=== PATIENT | male | born 1955 | race Caucasian/White ===

== ENCOUNTER 2017-01-28 12:35 | Outpatient (CLI) | payer OTHER ==
[2017-01-28] MEDS ORDERED: Lidocaine 1% PF 5 ML VIAL ONE (13:30)
[2017-01-28] MEDS ORDERED: EPINEPHrine 1 MG/ML AMP ONE (13:30)
[2017-01-28] MEDS ORDERED: Iopamidol 300 61% 30 ML VIAL ONE (13:30)
[2017-01-28] MEDS ORDERED: Gadobenate Dimeglumine 529 MG/1 ML (20ML VIAL) ONE (13:30)
--- NOTE | 2017-01-28 15:37 | RAD ---
EXAM: RIGHT SHOULDER ARTHROGRAM: HISTORY: Acute pain. Degenerative tear to the glenoid labrum. COMPARISON: 07/15/15. EXPOSURE: 0.6 minutes. 44.7 mGy*\S\m2. FINDINGS: Three views of the right shoulder are performed for digital data analyst imaging. No evidence of fracture dislocat ion. Technically successful right shoulder arthrogram. A total of 12 cc of contrast admixture was admini stered. No immediate or post procedure complications. TECHNIQUE: Consent was obtained to perform a right shoulder arthrogram. The right shoulder was prepped and guerrero ped in sterile fashion. 1% Lidocaine, buffered with sodium bicarbonate, was used for local anesthes ia. Under fluoroscopic guidance, a 22-gauge spinal needle was advanced into the right shoulder join t space. A total of 12 cc of contrast admixture was administered. The patient tolerated the proced ure well. No immediate or post procedure complication. IMPRESSION: Technically successful right shoulder arthrogram. POS: [facility]
--- NOTE | 2017-01-28 16:07 | MRI ---
MRI ARTHROGRAM OF THE RIGHT SHOULDER: INDICATION: Right shoulder pain. COMPARISON: A prior MRI arthrogram of the right shoulder 07/15/15. FINDINGS: There is postsurgical change of a prior SLAP repair. There are suture anchors seen involving the heart perior glenoid. There is again seen a partial thickness moderate-grade articular surface tear invol ving the infraspinatus at the footprint. This involves 50% of the tendon thickness. There is mild tendinosis of the supraspinatus and infraspinatus. No full-thickness rotator cuff tear is evident. There is a recurrent tear involving the posterior superior glenoid labrum best seen on image 10 and 9 of the ABER series. This is also seen on images 11 and 12 of series 6. There is postsurgical ch trish of a prior acromioplasty and distal clavicle excision. Glenohumeral articular surface demonstr ates some mild chondrosis involving the posterior glenoid. The anterior inferior glenohumeral chayo l ligamentous complex is intact. No muscular atrophy is evident. The biceps tendon is located. Th ere is mild intraarticular biceps tendinosis. IMPRESSION: 1. Recurrent posterior superior glenoid labral tear. 2. Partial thickness articular surface tear of the infraspinatus at the footprint involving 50% of the tendon thickness. 3. Mild biceps tendinosis. 4. Interval postsurgical change of a prior superior labrum anterior to posterior repair. 5. Mild chondrosis involving the posterior superior glenoid articular surface. 6. Postsurgical change of prior distal clavicle excision and acromioplasty. POS: OFF
== END 2017-01-28 12:36 | disposition home or self-care (01) ==
LOC: RAD 12:35
PROVIDERS: ATTEND Family Medicine
DX: M25.511 Pain in right shoulder (principal); M24.111 Other articular cartilage disorders, right shoulder; S43.491A Other sprain of right shoulder joint, initial encounter; S43.401A Unspecified sprain of right shoulder joint, initial encounter; M75.91 Shoulder lesion, unspecified, right shoulder; Z98.890 Other specified postprocedural states
CPT/HCPCS: 23350; A9579; J0171; J2001; J7050

== ENCOUNTER 2017-04-20 09:24 | Outpatient (CLI) | payer OTHER ==
--- NOTE | 2017-04-20 13:29 | MRI ---
MRI LEFT THUMB WITHOUT CONTRAST: HISTORY: Crush injury. COMPARISON: None. FINDINGS: BONES: No fracture. There is mild varus angulation of the thumb metacarpophalangeal joint. LIGAMENTS: The accessory ligaments are intact. No definite injury of the collateral ligaments, alth ough limited due to the varus angulation of the thumb metacarpophalangeal joint. TENDONS: No significant tenosynovitis. IMPRESSION: 1. No displaced fracture or trabecular micro-impaction fracture. 2. Mild varus angulation of the thumb metacarpophalangeal joint with thickening of the ulnar collate ral ligament, which may be sequela of the varus angulation and ligament interposition onto itself. POS: [facility]
== END 2017-04-20 09:25 | disposition home or self-care (01) ==
LOC: SCSMRI 09:24
PROVIDERS: ATTEND Orthopaedic Surgery
DX: S63.642A Sprain of metacarpophalangeal joint of left thumb, initial encounter (principal); M24.242 Disorder of ligament, left hand

== ENCOUNTER 2017-05-28 05:50 | Day surgery (SDC) | payer OTHER ==
[2017-05-20 10:30] VITALS: BMI 23.0
[2017-05-28] MEDS ORDERED: Midazolam HCl 2 mg/2 ml Vial ONE (06:35)
[2017-05-28] MEDS ORDERED: Fentanyl 100 MCG/2 ML VIAL ONE (06:35)
[2017-05-28] MEDS ORDERED: Clindamycin/D5W 900 mg/50 ml Premix Bag ONE (06:42)
[2017-05-28] MEDS ORDERED: Lidocaine 1% (PF) 30 ML VIAL ONE (06:43)
--- NOTE | 2017-05-28 08:31 | OP ---
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 POSTOPERATIVE DIAGNOSIS: Proximal biceps tendon degeneration and tearing. PROCEDURE: Examination under anesthesia with diagnostic arthroscopy and use of arthroscopic right sh oulder biceps tenodesis. ANESTHESIA: General with interscalene block. SURGEON: Dr. Soto. BLOOD LOSS: Minimal. DRAINS: None. COMPLICATIONS: None. TECHNIQUE: Following induction of general anesthesia, the patient was placed in the left lateral dec ubitus position on the operating room table. Right shoulder was placed in an arm holding device with 15 pounds longitudinal traction. Right shoulder was prepped and draped in sterile fashion for surge ry. Arthroscope was inserted into the posterior portal and the shoulder joint was examined. The int raarticular aspect of the shoulder demonstrated normal articular cartilage of glenohumeral joint. Un dersurface of the rotator cuff was completely normal. The biceps tendon and biceps labral complex wheeler d marked fraying and degeneration. It was still attached and intact from a previous labral repair ma ny years ago; however, due the fraying and the degeneration of the biceps tendon with the biceps tend on split it was deemed to be the source of pain. The biceps tendon was released using electrocautery . The remaining labrum was lightly debrided to a smooth stable base. Arthroscope was inserted in th e subacromial space. Subacromial space had no impingement, a well decompressed subacromial space. T he superficial aspect of the rotator cuff was completely intact, completely normal. The biceps tendo n was identified and distal bicipital groove was debrided. Hemostasis was maintained. An 8.5 mm uni cortical tunnel was created using a cannulated reamer in the bicipital groove. An 8.0 mm biceps teno desis screw was used to grasp the biceps tendon, inserted into the tunnel, and secured the biceps ten don using the Bio[employer]posite Bio-Tenodesis Screw. Excellent fixation and stabilization of the biceps t endon through a full range of motion was obtained. The shoulder was stable. Arthroscopic equipment was removed. The wound was closed using yovani and a large compressive sterile dressing was applied . The patient tolerated the procedure well and was taken to recovery room in stable condition.
== END 2017-05-28 09:41 | disposition home or self-care (01) ==
LOC: SDC 05:50
PROVIDERS: ATTEND Orthopaedic Surgery Sports Medicine
PROC: 0LS14ZZ Reposition Right Shoulder Tendon, Percutaneous Endoscopic Approach (ICD-10-PCS; principal; 2017-05-28)
DX: S46.211A Strain of muscle, fascia and tendon of other parts of biceps, right arm, initial encounter (principal); M66.321 Spontaneous rupture of flexor tendons, right upper arm; I10 Essential (primary) hypertension; F17.200 Nicotine dependence, unspecified, uncomplicated; Z79.899 Other long term (current) drug therapy; Z91.048 Other nonmedicinal substance allergy status
CPT/HCPCS: 93005; 93010; C1713; J2001; J2250; J3010; J3490

== ENCOUNTER 2018-06-23 10:07 | Outpatient (CLI) | payer OTHER ==
--- NOTE | 2018-06-23 13:42 | MRI ---
MRI RIGHT SHOULDER WITHOUT CONTRAST: Date: 06/23/18 HISTORY: M75.121 complete rotator cuff tear. COMPARISON: Shoulder MRI from 2017. FINDINGS: Biceps Tendon: Prior biceps tenodesis. This occurs at the distal aspect of the intertubercular groove. Labrum: Labral evaluation is limited due to extensive motion. There appears to be posterior superior and post erior inferior labral tearing. Free edge fraying of superior labrum with labral tear anterior and pos terior to the supraglenoid tubercle. Rotator Cuff: There is moderate tendinosis of the supraspinatus and infraspinatus tendons. The tendons themselves a re very attenuated. There is a 40-50% bursal surface fraying of both the supraspinatus and infraspina tus tendons. Bones: Prior acromioplasty. Moderate degenerative disease of acromioclavicular joint. Muscles: Muscle bulk is normal. No significant edema. IMPRESSION: 1. Limited evaluation due to motion, although there appears to be tearing throughout the superior la erica extending to the posterior labrum. 2. Prior biceps tenodesis. 3. Attenuation of both the supraspinatus and infraspinatus tendons with high grade bursal surface fr aying, 50-60%, of both the supraspinatus and infraspinatus tendons. There appears to be a small focal perforation measuring 2.0 mm in AP dimension of the posterior most fibers of the supraspinatus tendo n. 4. Moderate subacromial/subdeltoid bursal effusion. POS: [facility]
== END 2018-06-23 10:08 | disposition home or self-care (01) ==
LOC: SCSMRI 10:07
PROVIDERS: ATTEND Orthopaedic Surgery Sports Medicine
DX: M75.121 Complete rotator cuff tear or rupture of right shoulder, not specified as traumatic (principal); M75.21 Bicipital tendinitis, right shoulder

== ENCOUNTER 2019-10-18 07:10 | Outpatient (CLI) | payer OTHER ==
[2019-10-18 14:20] LABS: Hemoglobin 14.3 g/dL (14.0-18.0); Mean Corpuscular HGB CONC 34.2 g/dL (32.0-36.0); Mean Corpuscular Hemoglobin 32.4 pg (27.0-31.0); Mean Corpuscular Volume 94.7 fL (78.0-98.0); Mean Platelet Volume 7.9 fL (7.4-10.4); Platelet Count 214 thou/uL (130-400); RBC Distribution Width 11.9 % (11.5-14.5); Red Blood Cell (RBC) Count 4.43 mill/uL (4.70-6.10); White Blood Cell (WBC) Count 5.7 thou/uL (4.8-10.8)
[2019-10-18 14:38] LABS: Anion Gap 10 mmol/L (10-20); BUN (Urea Nitrogen) 13 mg/dL (8.4-25.7); Calc. Creatinine Clearance 0 mL/min (70-130); Calcium 9.4 mg/dL (7.8-10.44); Carbon Dioxide 29 mmol/L (23-31); Chloride 103 mmol/L (98-107); Estimated GFR-MDRD 74; Glucose 131 mg/dL (80-115); Potassium 3.9 mmol/L (3.5-5.1); Sodium 138 mmol/L (136-145)
[2019-10-19 11:55] LABS: SARS-CoV-2 MS2 Positive; SARS-CoV-2 N Gene Negative; SARS-CoV-2 S Gene Negative; SARS-CoV-2 orf1ab Negative
== END 2019-10-18 07:11 | disposition home or self-care (01) ==
LOC: LABBT 07:10
PROVIDERS: ATTEND Orthopaedic Surgery
DX: Z01.818 Encounter for other preprocedural examination (principal); Z11.59 Encounter for screening for other viral diseases; M75.121 Complete rotator cuff tear or rupture of right shoulder, not specified as traumatic
CPT/HCPCS: 80048; 85027; 87635; U0003

== ENCOUNTER 2019-10-20 06:05 | Day surgery (SDC) | payer OTHER ==
[2019-10-17 14:07] VITALS: BMI 23.0
[2019-10-20] MEDS ORDERED: Fentanyl 100 MCG/2 ML VIAL ONE ×2 (06:23→06:44)
[2019-10-20] MEDS ORDERED: Midazolam HCl 2 mg/2 ml Vial ONE ×2 (06:23→06:44)
[2019-10-20] MEDS ORDERED: Lidocaine 1% (PF) 30 ML VIAL ONE (06:44)
[2019-10-20] MEDS ORDERED: Clindamycin/D5W 900 mg/50 ml Premix Bag ONE (06:52)
[2019-10-20] MEDS ORDERED: EPINEPHrine 1 MG/ML AMP ONE (06:54)
[2019-10-20] MEDS ORDERED: Bupivacaine PF 0.5% 30 ML VIAL ONE (06:54)
[2019-10-20] MEDS ORDERED: Promethazine HCl 25 MG/ML VIAL IM PRN (08:34)
[2019-10-20] MEDS ORDERED: Ropivacaine 0.2% 550 ML 550 ML NERVE BLCK SCH (08:34)
[2019-10-20] MEDS ORDERED: Zolpidem Tartrate 5 MG TAB PO PRN (08:34)
[2019-10-20] MEDS ORDERED: Ondansetron PF 4 MG/2 ML Vial IVP PRN (08:34)
--- NOTE | 2019-10-20 11:09 | OP ---
DATE OF PROCEDURE: 10/20/2019 PREOPERATIVE DIAGNOSIS: Right shoulder recurrent rotator cuff tear. POSTOPERATIVE DIAGNOSIS: Right shoulder recurrent rotator cuff tear. PROCEDURES PERFORMED: 1. Examination under anesthesia with diagnostic arthroscopy. 2. Arthroscopic revision rotator cuff repair. ANESTHESIA: General with interscalene block. BLOOD LOSS: Minimal. DRAINS: None. COMPLICATIONS: None. DESCRIPTION OF PROCEDURE: Following induction of general anesthesia, the patient was placed in the left lateral decubitus position on the operating room table. Right shoulder was placed in an arm holding device with 15 pounds of longitudinal traction. Right shoulder was prepped and draped in sterile fashion for surgery on the right shoulder. Arthroscope was inserted through a posterior portal and intra-articular aspect of the shoulder was identified. The intra-articular aspect of the shoulder demonstrated normal articular cartilage. There was mild fraying of the biceps labral complex. The biceps tendon had been previously tenotomized and tenodesed. The undersurface of the rotator cuff demonstrated a the tear and retraction of the articular surface of the rotator cuff from a previous repair. There was approximately a 1.5 to 2 cm tear and retraction, that was minimally retracted. The superficial surface had fraying and evidence of mild full-thickness tearing. The arthroscope was inserted in the subacromial space and the previous repair site were identified. The sutures were intact. There was no subacromial impingement. There was no osteophyte formation. There was no impingement of the acromion on the rotator cuff repair. A decompression and acromioplasty were not required. Through the lateral portal, the subacromial space was lightly debrided. A superolateral portal was established using an 11 blade. The rotator cuff tear was completed and the old suture material removed. The rotator cuff was mobilized as both the superficial and articular layers were carefully identified. The greater tuberosity attachment site was carefully debrided using motorized shaver to a healthy bleeding bone. The old site from the previous fixation anchor demonstrated a significant defect in the greater tuberosity of the humerus and an 8 x 23 mm Bio-Tenodesis screw was used to insert the medial anchor. Excellent fixation was obtained. Attached to the 8 x 23 mm Bio-Tenodesis screw were a #2 FiberWire suture, a FiberTape suture, and a SutureTape suture. After passing these sutures through the anchor and insertion, the 6-suture limbs were then passed through the edge of the rotator cuff. The two FiberTape sutures were placed in the anterior aspect of the tear including both the deep and superficial layers of the supraspinatus tendon. The SutureTape sutures were placed in the more posterior aspect of the tear involving the supraspinatus and infraspinatus tendons. The FiberWire sutures were placed more medial in the supraspinatus tendon and all sutures were placed using a Scorpion suture passer. After placement of the 6-suture limbs, the FiberTape and SutureTape were tractioned, reducing the tear to the anatomic position. The FiberWire sutures were tied using arthroscopic knot tying techniques, securing the medial row with excellent fixation and stability. The FiberTape and SutureTape were divided into 2 sets of 2 sutures, they were crossed and secured on the lateral aspect of the greater tuberosity of the humerus using a 6.25 Bio-Tenodesis screw and a 5.5-mm Bio-Tenodesis screw. Completion of the double-row suture-bridge fixation technique was performed. Excellent fixation and stabilization of the rotator cuff through a full range of motion were obtained. The arthroscopic equipment was removed. Wounds were closed using yovani and sterile dressings were applied. The patient tolerated the procedure well and was taken to the recovery room in stable condition. Job ID: [id number]
[2019-10-20] MEDS ORDERED: Rocuronium Bromide 10 MG/ML (10ML VIAL) ONE (11:33)
[2019-10-20] MEDS ORDERED: Lidocaine 1% PF 5 ML VIAL ONE (11:33)
[2019-10-20] MEDS ORDERED: Glycopyrrolate 0.2 MG/ML 5 ML SYRINGE ONE (11:33)
[2019-10-20] MEDS ORDERED: PHENYLEPHRINE-NS 100 MCG/ML 10 ML SYRINGE ONE (11:33)
[2019-10-20] MEDS ORDERED: PROPOFOL 200 MG/20 ML VIAL ONE (11:33)
[2019-10-20] MEDS ORDERED: Ropivacaine 0.5% HCl/PF (150 MG/30 ML VIAL) ONE (11:33)
[2019-10-20] MEDS ORDERED: EPHEDRINE 25 MG/5 ML SYRINGE ONE (11:33)
[2019-10-20] MEDS ORDERED: Ropivacaine 0.2% HCl/PF (40 MG/20 ML VIAL) ONE (11:33)
== END 2019-10-20 11:12 | disposition home or self-care (01) ==
LOC: SDC 06:05
PROVIDERS: ATTEND Orthopaedic Surgery Sports Medicine
PROC: 0RHJ44Z Insertion of Internal Fixation Device into Right Shoulder Joint, Percutaneous Endoscopic Approach (ICD-10-PCS; principal; 2019-10-20)
PROC: 3E0T3BZ Introduction of Anesthetic Agent into Peripheral Nerves and Plexi, Percutaneous Approach (ICD-10-PCS; principal; 2019-10-20)
PROC: 0LQ14ZZ Repair Right Shoulder Tendon, Percutaneous Endoscopic Approach (ICD-10-PCS; principal; 2019-10-20)
DX: M75.121 Complete rotator cuff tear or rupture of right shoulder, not specified as traumatic (principal); G89.18 Other acute postprocedural pain; F17.220 Nicotine dependence, chewing tobacco, uncomplicated; E78.00 Pure hypercholesterolemia, unspecified; Z79.899 Other long term (current) drug therapy; Z88.0 Allergy status to penicillin; Z91.048 Other nonmedicinal substance allergy status; Z98.890 Other specified postprocedural states
CPT/HCPCS: A4306; C1713; J0171; J2001; J2250; J2704; J2795; J3010; J3490; S0020